=== PATIENT | female | born 1985 | race Two or more races ===

== ENCOUNTER 2018-07-04 23:42 | Emergency (ER) | payer MEDICAID ==
[~2018-07-04] VITALS: Ht 157.5 cm; Wt 113.4 kg
[2018-07-05 04:30] VITALS: BP 105/68
== END 2018-07-05 04:48 | disposition home or self-care (01) ==
LOC: ER 23:49
DX: S01.01XA Laceration without foreign body of scalp, initial encounter (principal); W22.8XXA Striking against or struck by other objects, initial encounter; Y93.89 Activity, other specified; Y99.8 Other external cause status; Y92.89 Other specified places as the place of occurrence of the external cause
CPT/HCPCS: 70450